=== PATIENT | male | born 1950 | race Caucasian/White ===

== ENCOUNTER 2023-04-16 15:47 | Inpatient (IN) | payer OTHER ==
[~2023-04-16] VITALS: Ht 166.4 cm; Wt 90.3 kg
[2023-04-19] MEDS ORDERED: CHILDREN'S ASPI81 MG PO (09:00)
[2023-04-19] MEDS ORDERED: COZAAR25 MG PO (09:00)
[2023-04-19] MEDS ORDERED: TAMS0.4C PO (09:01)
[2023-04-19] MEDS ORDERED: TOPROL XL25 M1 PO (09:02)
[2023-04-19] MEDS ORDERED: LEVOTHYROXINE25 MCG PO (09:02)
[2023-04-24] MEDS ORDERED: EZETIMIBE-SIMV1 EAC1 (07:57)
[2023-04-24] MEDS ORDERED: FARXIGA10 MG (07:57)
[2023-04-24] MEDS ORDERED: LOSARTAN POTASS50 MG (07:57)
[2023-04-25 07:02] LABS: HEMATOCRIT 40.6 % (39.0-48.0); HEMOGLOBIN 13.9 g/dL (13-16.00); MEAN CELL VOLUME 90.9 fL (80.0-100.00); MEAN CORPUSCULAR HEMOGLOBIN 31.1 pg (27.00-32.0); MEAN CORPUSCULAR HGB CONC 34.2 g/dl (32.0-36.0); PLATELET COUNT 148 K/uL (150-450); RED BLOOD COUNT 4.46 M/uL (4.00-6.00); RED CELL DISTRIBUTION WIDTH 14.3 % (11.5-14.5)
[2023-04-25 07:05] LABS: HEMATOCRIT 40.4 % (39.0-48.0); HEMOGLOBIN 13.8 g/dL (13-16.00); RED BLOOD COUNT 4.51 M/uL (4.00-6.00)
[2023-04-25 07:19] LABS: CALCIUM 8.2 mg/dL (8.5-10.1); CREATININE SERUM 1.37 mg/dL (0.70-1.30); GFR 50.93; POTASSIUM 4.31 mEq/L (3.5-5.1)
[2023-04-25 23:35] LABS: HEMATOCRIT 43.8 % (39.0-48.0); HEMOGLOBIN 14.8 g/dL (13-16.00); MEAN CELL VOLUME 91.9 fL (80.0-100.00); MEAN CORPUSCULAR HEMOGLOBIN 31.1 pg (27.00-32.0); MEAN CORPUSCULAR HGB CONC 33.8 g/dl (32.0-36.0); PLATELET COUNT 160 K/uL (150-450); RED BLOOD COUNT 4.76 M/uL (4.00-6.00); RED CELL DISTRIBUTION WIDTH 14.2 % (11.5-14.5)
[2023-04-26 00:06] LABS: CALCIUM 8.8 mg/dL (8.5-10.1); CREATININE SERUM 1.65 mg/dL (0.70-1.30); GFR 41.1; POTASSIUM 4.1 mEq/L (3.5-5.1)
== END 2023-04-26 10:58 | disposition home or self-care (01) | DRG 657 ==
LOC: O/R 04-24 06:00 → SURH 04-24 07:00 → SURG 04-24 17:55
PROVIDERS: ADMIT Urology; ATTEND Urology
PROC: 0GT34ZZ Resection of Right Adrenal Gland, Percutaneous Endoscopic Approach (ICD-10-PCS; 2023-04-24)
PROC: 0TB64ZZ Excision of Right Ureter, Percutaneous Endoscopic Approach (ICD-10-PCS; 2023-04-24)
PROC: 0TT04ZZ Resection of Right Kidney, Percutaneous Endoscopic Approach (ICD-10-PCS; principal; 2023-04-24 07:00)
DX: C64.1 Malignant neoplasm of right kidney, except renal pelvis (principal); N03.9 Chronic nephritic syndrome with unspecified morphologic changes